=== PATIENT | male | born 1965 | race Two or more races ===

== ENCOUNTER → 2024-10-30 | Outpatient (CLI) | payer OTHER, MEDICAID, SELFPAY ==
--- NOTE | 2024-10-30 | XR_ITS ---
Examination: AP knees single view TECHNIQUE: AP standing knee single view Exam date and time: October 30, 2024 1513 hours INDICATIONS: Knee pain diagnosis osteoarthritis months FINDINGS: Severe narrowing medial joint space left knee Advanced osteoarthritis lateral joint space left knee No fracture or dislocation IMPRESSION: Severe narrowing medial joint space left knee with subarticular sclerosis Advanced osteoarthritis lateral joint space left knee
== END | disposition home or self-care (01) ==
LOC: SDIM 14:50
PROVIDERS: Referring Provider Orthopaedic Surgery; Visit Provider Orthopaedic Surgery
DX: M17.12 Unilateral primary osteoarthritis, left knee (principal); M25.862 Other specified joint disorders, left knee
CPT/HCPCS: 73560

== ENCOUNTER 2024-12-29 08:30 | Day surgery (SDC) | payer MEDICARE, MEDICAID, OTHER, SELFPAY ==
--- NOTE | 2024-12-28 11:37 | EKG_ITS ---
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
[2024-12-28 11:50] VITALS: BMI 33.0
[2024-12-28 12:27] LABS: Basophils # (Auto) 0.1 Thou/mm3 (0.0-0.2); Basophils % (Auto) 1 % (0-2.5); Eosinophils # (Auto) 0.2 Thou/mm3 (0.0-0.5); Eosinophils % (Auto) 3 % (0-10); Hematocrit 40.1 % (41.0-53.0); Hemoglobin 13.8 g/dL (13.5-16.0); Immature Granulocytes % (Auto) 1 % (0-0); Immature Granulocytes Auto 0.03 Thou/mm3 (0.00-0.00); Lymphocytes # (Auto) 2.5 Thou/mm3 (1.0-4.8); Lymphocytes % (Auto) 39 % (10-50); Mean Corpuscular HGB Conc 34.4 g/dl (31.0-37.0); Mean Corpuscular Hemoglobin 31.7 pg (25.0-35.0); Mean Corpuscular Volume 92 fL (80-100); Monocytes # (Auto) 0.5 Thou/mm3 (0.0-0.8); Monocytes % (Auto) 8 % (0-12); Neutrophils # (Auto) 3.1 Thou/mm3 (1.8-7.7); Neutrophils % (Auto) 49 % (37-80); Nucleated Red Blood Cell % 0 /100 WBC (0); Platelet Count 303 Thou/mm3 (140-440); RDW Standard Deviation 42.7 fL (35.1-43.9); Red Blood Count 4.36 Miln/mm3 (4.50-5.90); White Blood Count 6.4 Thou/mm3 (3.8-10.6)
[2024-12-28 12:56] LABS: Alanine Aminotransferase 15 U/L (10-49); Albumin, Serum 4.5 gm/dL (3.5-5.0); Albumin/Globulin Ratio 1.5 (1.2-2.2); Alkaline Phosphatase 92 U/L (46-116); Anion Gap 7 (7-16); Aspartate Amino Transferase 19 U/L (0-34); BUN/Creatinine Ratio 11 Ratio (12-20); Bilirubin,Total 0.4 mg/dL (0.3-1.2); Blood Urea Nitrogen 11 mg/dL (9-23); Calcium 9.6 mg/dL (8.3-10.6); Calcium (Corrected) 9.6 mg/dL (8.5-10.1); Carbon Dioxide 23.2 mMol/L (20.0-31.0); Chloride 106 mMol/L (98-107); Estimated Creatinine Clearance 86.9 mL/min (>60); Glucose 126 mg/dL (74-106); Osmolality,Calculated 273 (275-295); Potassium 4.2 mMol/L (3.4-5.1); Sodium 136 mMol/L (136-145); Total Protein 7.5 gm/dL (5.7-8.2); eGFR > 60 See Note
[2024-12-28 13:16] LABS: Partial Thromboplastin Time 31.9 Seconds (22.0-36.0); Prothrombin Time 10.8 Seconds (9.0-12.2)
--- NOTE | 2024-12-28 13:17 | ESHP_ITS ---
RE: NAKUL NANCE : 1965 DATE OF ADMISSION: 12/29/2024 HISTORY OF PRESENT ILLNESS: The patient has got pain in the left knee joint. Pain is quite bad. Range of motion is restricted. The patient graded intensity of pain to be 8/10. Activity of daily living and quality of life is affected. The patient is unable to sleep. The patient has to stop walking after one or two blocks due to pain. PAST MEDICAL HISTORY: The patient has a history of high cholesterol. No history of diabetes mellitus or high blood pressure, asthma, seizure, chest pain, myocardial infarction, or bleeding disorder. PAST SURGICAL HISTORY: Include cholecystectomy in 2007. DRUG HISTORY: The patient is on, 1. Loratadine. 2. Atorvastatin. 3. Gabapentin. 4. Amitriptyline. 5. The patient is also on hydroxyzine. ALLERGIES: NIL KNOWN. FAMILY HISTORY AND SOCIAL HISTORY: The patient denies smoking, drinking and is not working. PHYSICAL EXAMINATION: GENERAL: Normal built person. VITAL SIGNS: Pulse 82 per minute. Blood pressure 138/82. NECK: Soft, supple. No masses felt. Trachea is centrally placed. CARDIOVASCULAR: First and second hearts sounds normal. No murmur heard. LUNGS: Bilateral vesicular breath sounds. CHEST: Clear. ABDOMEN: Soft. No masses felt. Bowel sounds present. EXTREMITIES: Left knee examination revealed 1+ swelling and 2+ tenderness. 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 The patient walks with a limp. Range of motion 0 to 110 degrees of flexion. Crepitus is present. DIAGNOSTIC DATA: X-ray reveals severe osteoarthritic changes with significantly reduced medial joint space. ASSESSMENT AND PLAN: Since the patient is asymptomatic and affecting quality of life, therefore, left total knee replacement was discussed and advised. Risks with anesthesia was explained and that includes, but not limited to reaction to anesthetic agents, cardiac arrest or rarely it might be fatal. Risk with operation includes infection and if that happens, the patient may need further surgical procedure. Other risks include delayed healing, wound dehiscence, etc. No guarantee is given regarding outcome of the procedure and/or relief of symptoms. Sometimes rare complication happens and if that happens that has to be taken care of. The patient was sent to Dr. Briceno, the account leader, and has been cleared for surgical procedure. Appropriate lab work is done. Surgery is booked for 12/29/2024. DT: 12:20:07 TT: 13:15:00 Ref: [id number] - TID: [id number]
--- NOTE | 2024-12-28 14:20 | SUR.PREOP ---
Pt's notified to bring pt at 0830 tomorrow for surgery.
--- NOTE | 2024-12-28 14:36 | SUR.PREOP ---
Cardiac records reviewed with Dr Cunningham. 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 Requested records and waiting but have a cardiac clearance.
[2024-12-29] VITALS (16 sets, daily range): BP systolic 136–179; BP diastolic 73–96; PULSE 68–93; RESP 13–23; TEMP 36.2–36.8; O2SAT 95–100; BMI 32.9
[2024-12-29] MEDS: RINGERS LACTATED 1000 ML 1,000 ML 20 ML IV (09:13)
--- NOTE | 2024-12-29 09:41 | SUR.PREOP ---
Patient expressed gratitude for prayer before their procedure.
--- NOTE | 2024-12-29 12:24 | XR_ITS ---
Examination: Right knee 2 views Technique one AP lateral right knee 2 views Exam date and time: December 29, 2024 1527 hours INDICATIONS: Postop knee replacement today. FINDINGS: Moderate osteopenia. Total right hip arthroplasty. Satisfactory alignment No fracture IMPRESSION: Total right hip arthroplasty with satisfactory alignment
--- NOTE | 2024-12-29 12:24 | ESOP_ITS ---
Date of Procedure 12/29/24 Pre Op Diagnosis Severe DJD left knee joint Post Op Diagnosis Same Procedure Left total knee replacement [place] persona implant. Femur size 9 standard Tibial baseplate size G Polyethylene size 12 mm Patella size 29 mm Findings There is severe osteoarthritic changes with significant loss of the medial tibial plateau articular cartilage. There is significant genu varum deformity. Osteophytes are present all along. Procedure Description The patient was given a [spinal] anesthesia. Once satisfactory anesthesia was achieved a tourniquet was placed on left upper thigh. Intravenous antibiotics was given at the time of anesthesia. The patient was thoroughly prepped and draped. After using Esmarch the to urniquet pressure was raised to 350 mmHg. A skin incision was made 2 inches proximal to the upper pole of patella going as far down as up to the medial aspect of the tibial tuberosity. The skin was raised as a flap on the site. The bleeding vessels were electrocoagulated as and when encountered. The quadriceps tendon, medial border of the patella and the patellar tendon along the medial aspect of the tibial tuberosity was incised and reflected. The patellar tendon was reflected as much as needed to avtar the patella. The soft tissue from the upper medial border of the tibia was reflected to correct her genu varum deformity. The knee joint was flexed. The anterior cruciate ligament, medial and lateral meniscus were excised. Next para drill hole was made to the inferior surface of the femur. Following that a swab was placed. A 4?? of abduction was already put into it. Following that a cutting block for the inferior cut of the femur was placed and nicely secured with the pins. The swat was removed. The inferior cut of the femur was made and after that the cutting block was removed. Following that a sizer was placed. A decision was made to use size [9] femur implant. 2 drill holes each in 3?? of external rotation were made. The sizer was removed. Size [9] cutting block was placed. Following that anterior, posterior, anterior chamfer and posterior chamfer cuts were made. The cutting block was removed. The knee joint was extended and a 10 mm trial plastic was removed and the intended level of the tibial cut was marked. The knee joint was flexed. With the help of double-pronged the tibia was displaced anteriorly. An extramedullary jig for the cutting block placement of the tibia was placed. The mechanical axis of the zig was parallel to the mechanical axis of the tibia. Following that the tibial cutting block was placed at the desired level and was secured nicely with the help of pins. Following that the tibial cut was made. In this case was posterior cruciate ligament was saved. The cutting block was removed. The spacer was placed and a decision was made to use size [12] polyethylene. The sizing of the tibial baseplate was done and the decision was made to use size{ G] tibial baseplate. Following that size [9] trial femur implant was placed in lateralized position and size [G] tibial tibial baseplate along with size [12] plastic was placed in knee joint was flexed and extended quite a few times and tibial baseplate was allowed to sit wherever it wanted to. The markings were made for the tibial baseplate. 2 drill holes were made for the inferior surface of the femur trial implant. The trial implant was removed and tibial baseplate was placed again with the help of pins. The collar was placed and superior hole was drilled. Following that a fin cut was made. The patella was reamed with [29] mm diameter reamer. [14] mm thickness was left. A collar was placed and 3 drill holes were made. All the trial implant was placed and patellar tracking was checked and found to be good. Lateral release was done at this point. The wound was irrigated with antibiotic solution every 4-5 minutes. Now the power lavage antibiotic solution was used. The knee joint was flexed. The bone were made dry. The cement was mixed. With the help of cement the tibial baseplate was mounted. The excess cement was removed. The femur implant was placed and trial plastic was placed and knee joint was extended. Patella was also mounted with the help of cementing. Excess cement was removed. Osteophytes from the patella was removed at this time. Once the cement was set the tourniquet pressure was released. The bleeding vessels were electrocoagulated. The trial plastic was removed and 12 mm ultra high molecular weight polyethylene was placed. Closure . The quadriceps tendon, medial border of the patella and patellar tendon was closed with the help of 1-0 Vicryl in an interrupted fashion. The subcutaneous tissue was closed with 2-0 Vicryl in an interrupted fashion. The skin was closed with jennifer. The wound was cleaned with hydrogen proximal solution and a sterile dressing was applied. Patient tolerated procedure very well. Estimated blood loss [50] mL. Prognosis in this case is good. This was taken to the recovery room in good condition. Anesthesia GETA and other Pathology / specimen None Estimated Blood Loss 50 Surgeon John Haywood MD Surgical Staff Operation Date: 12/29/24 10:30 Case Staff Anesthesiologist: Lyle Marquez RN First Assistant: Luisito Francisco
--- NOTE | 2024-12-29 12:54 | SUR.PHASEI ---
1253: received from OR via bed. received report from OTTO Mallory and Jimmy Johnson. pt alert and oriented. no s/s of resp. distress or discomfort. oral airway in place. dressing to left knee clean, dry and intact. no bleeding or discharge noted from dressing. positive CMS: positive pulse, cap refill less than 2 seconds.
--- NOTE | 2024-12-29 12:54 | SUR.PHASEI ---
1254: pt able to open mouth when ask, removed opral airway at this time.
[2024-12-29] MEDS: fentaNYL CIT INJ 50 mCg/ML AMP 2ML 25 MCG IV ×2 (13:07→14:02)
[2024-12-29] MEDS: ACETAMINOPHEN IVPB 1,000 MG/100 ML VIAL 250 MG IV ×2 (13:10→19:55)
[2024-12-29] MEDS: ONDANSETRON INJ 2 MG/ML INJ 2 ML 4 MG IV ×2 (13:22→17:59)
--- NOTE | 2024-12-29 13:30 | SUR.PHASEI ---
1330: pt able use urinal, urine output 100 ml with color yellow, no odor noted.
[2024-12-29] MEDS: MORPHINE SULF INJ 10 MG/ML VIAL 3 MG IV (13:33)
--- NOTE | 2024-12-29 14:12 | SUR.PHASEII ---
1412 Report received from Marisol Pardo pt resting quietly, no complaints at this time, dressing to Left Knee CDI and Left Dorsal pedal pulse strong. VSS. Continue to Monitor.
--- NOTE | 2024-12-29 14:12 | SUR.PHASEI ---
1412: report given at this time with OTTO Caputo. pt sleeping at this time. no s/s of resp. distress or discomfort. dressing to left knee clean, dry and intact. no bleeding or discharge noted from dressing. positive CMS: able to wiggle left toes when ask, positive pulse, cap refill less than 2 seconds.
--- NOTE | 2024-12-29 14:27 | SUR.PHASEII ---
[address] Marquez regarding pt's pain and medication that has already been given being ineffective. Telephone order read/back received for Flexeril 10 mg PO x1 and Oxycodone IR 10 mg PO x1. Will place order in EMR and administer medication per MD order.
[2024-12-29] MEDS: CYCLObenzaPRINE 5 MG TABLET 10 MG PO (14:48)
--- NOTE | 2024-12-29 15:11 | SUR.PHASEII ---
1511 Pt had episode of 100 ml clear yellow emesis, pt reports feeling better after. Will continue to monitor.
--- NOTE | 2024-12-29 16:03 | SUR.PHASEII ---
1545 Report given to Chiquita MENJIVAR, patient meets discharge criteria from recovery, resting comfortably in bed, with his at bedside, breathing unlabored, vital signs stable, dressing intact; no bleeding noted, eating ice chips; tolerating well, patient has good circulation to left lower extremity. 1603 Patient transported via bed to room 379 without incident.
[2024-12-29] MEDS: ceFAZolin/D5W 1 GM IVPB 1 GM/50 ML BAG IV (18:07)
[2024-12-29] MEDS: MIRTAZAPINE 15 MG TABLET PO (20:06)
[2024-12-29] MEDS: hydrOXYzine HCL 25 MG TABLET 50 MG PO (20:06)
[2024-12-30] VITALS: BP 168/78; PULSE 72; RESP 19; TEMP 36.4; O2SAT 95
[2024-12-30] MEDS: ACETAMINOPHEN IVPB 1,000 MG/100 ML VIAL 250 MG IV ×2 (02:05→08:45)
[2024-12-30 02:06] VITALS: BP 168/78; PULSE 72
[2024-12-30] MEDS: amLODIPine BESYLATE 5 MG TABLET PO (02:06)
[2024-12-30] MEDS: ceFAZolin/D5W 1 GM IVPB 1 GM/50 ML BAG IV (02:40)
[2024-12-30 04:00] VITALS: BP 151/72; PULSE 75; RESP 19; TEMP 37.4; O2SAT 95
[2024-12-30] MEDS: MORPHINE SULF INJ 10 MG/ML VIAL 4 MG IV ×2 (04:25→14:09)
[2024-12-30 05:46] LABS: Basophils % (Auto) 0 % (0-2.5); Eosinophils % (Auto) 0 % (0-10); Hematocrit 37.2 % (41.0-53.0); Hemoglobin 12.9 g/dL (13.5-16.0); Immature Granulocytes % (Auto) 0 % (0-0); Immature Granulocytes Auto 0.04 Thou/mm3 (0.00-0.00); Lymphocytes # (Auto) 1.1 Thou/mm3 (1.0-4.8); Lymphocytes % (Auto) 10 % (10-50); Mean Corpuscular HGB Conc 34.7 g/dl (31.0-37.0); Mean Corpuscular Hemoglobin 31.4 pg (25.0-35.0); Mean Corpuscular Volume 91 fL (80-100); Monocytes % (Auto) 9 % (0-12); Neutrophils % (Auto) 81 % (37-80); Nucleated Red Blood Cell % 0 /100 WBC (0); Platelet Count 303 Thou/mm3 (140-440); RDW Standard Deviation 41.1 fL (35.1-43.9); Red Blood Count 4.11 Miln/mm3 (4.50-5.90); White Blood Count 11.1 Thou/mm3 (3.8-10.6)
--- NOTE | 2024-12-30 07:38 | PC.NURSE ---
Spoke to Dr. Haley regarding patients medication. 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 Notified that the patient's family member gave patient a dose of methadone from his home medication. Per , he would not restart the methadone and if he would have known that the patient is taking methadone, he would not have done the surgery. Am shift nurse made aware.
[2024-12-30] MEDS: ONDANSETRON INJ 2 MG/ML INJ 2 ML 4 MG IV (07:58)
[2024-12-30 08:00] VITALS: BP 165/84; PULSE 78; RESP 17; TEMP 36.3; O2SAT 97
[2024-12-30 12:00] VITALS: BP 145/89; PULSE 76; RESP 16; TEMP 36.8; O2SAT 97
--- NOTE | 2024-12-30 14:57 | PC.NURSE ---
Telephone order from Dr. Quinonez, to discharge patient at home. Informed MD that per physical therapist, patient is for home health Physical therapy. MD stated will make arrangement once patient is discharge and follow-up in his office Wednesday.
== END 2024-12-30 15:00 | disposition home health service (06) ==
LOC: S2EX 09:02 → S3SX 12-30 14:21
PROVIDERS: Anesthesiology; Referring Provider Orthopaedic Surgery; Visit Provider Orthopaedic Surgery
PROC: (CPT 27447; principal; 2024-12-29 10:30)
DX: M17.12 Unilateral primary osteoarthritis, left knee (principal); M21.162 Varus deformity, not elsewhere classified, left knee; M25.762 Osteophyte, left knee; E78.00 Pure hypercholesterolemia, unspecified; Z01.810 Encounter for preprocedural cardiovascular examination
CPT/HCPCS: 27447; 36415; 73560; 80053; 85025; 85610; 85730; 86850; 86900; 86901; 86923; 87081; 93005; 97161; A4217; C1713; C1776; J0131; J0689; J0690; J1100; J1580; J1885; J2250; J2270; J2405; J2704; J2795; J3010; J3490; J7120; A9270

== ENCOUNTER → 2025-04-05 | Outpatient (CLI) | payer OTHER, MEDICAID, SELFPAY ==
--- NOTE | 2025-04-05 09:19 | XR_ITS ---
Examination: Knee, right , 3 views Technique: Knee AP, lateral, oblique 3 views Date and time of exam: April 05, 2025 0921 hours INDICATIONS: Right knee pain 3 years. FINDINGS: Advanced tricompartment osteoarthritis Severe narrowing medial joint space Moderate knee effusion No fracture IMPRESSION: Advanced tricompartment osteoarthritis
== END | disposition home or self-care (01) ==
PROVIDERS: Referring Provider Orthopaedic Surgery; Visit Provider Orthopaedic Surgery
DX: M17.11 Unilateral primary osteoarthritis, right knee (principal)
CPT/HCPCS: 73562

== ENCOUNTER 2025-04-27 14:05 | Observation (INO) | payer MEDICARE, MEDICAID, SELFPAY ==
[2025-04-26 10:56] VITALS: BMI 34.2
[2025-04-26 11:54] LABS: Basophils # (Auto) 0.1 Thou/mm3 (0.0-0.2); Basophils % (Auto) 1 % (0-2.5); Eosinophils # (Auto) 0.3 Thou/mm3 (0.0-0.5); Eosinophils % (Auto) 4 % (0-10); Hematocrit 40.0 % (41.0-53.0); Hemoglobin 13.8 g/dL (13.5-16.0); Immature Granulocytes Auto 0.02 Thou/mm3 (0.00-0.00); Lymphocytes # (Auto) 2.1 Thou/mm3 (1.0-4.8); Lymphocytes % (Auto) 33 % (10-50); Mean Corpuscular HGB Conc 34.5 g/dl (31.0-37.0); Mean Corpuscular Hemoglobin 31.2 pg (25.0-35.0); Mean Corpuscular Volume 90 fL (80-100); Monocytes # (Auto) 0.5 Thou/mm3 (0.0-0.8); Monocytes % (Auto) 8 % (0-12); Neutrophils # (Auto) 3.4 Thou/mm3 (1.8-7.7); Neutrophils % (Auto) 53 % (37-80); Nucleated Red Blood Cell # 0.00 Thou/mm3 (0.00-0.00); Nucleated Red Blood Cell % 0 /100 WBC (0); Platelet Count 269 Thou/mm3 (140-440); RDW Standard Deviation 42.9 fL (35.1-43.9); Red Blood Count 4.43 Miln/mm3 (4.50-5.90); White Blood Count 6.3 Thou/mm3 (3.8-10.6)
[2025-04-26 12:03] LABS: INR 1.0 (0.9-1.3); Partial Thromboplastin Time 32.5 Seconds (22.0-36.0); Prothrombin Time 11.1 Seconds (9.0-12.2)
[2025-04-26 12:07] LABS: Alanine Aminotransferase 17 U/L (10-49); Albumin, Serum 4.4 gm/dL (3.5-5.0); Albumin/Globulin Ratio 1.5 (1.2-2.2); Alkaline Phosphatase 111 U/L (46-116); Anion Gap 6 (7-16); Aspartate Amino Transferase 20 U/L (0-34); BUN/Creatinine Ratio 12 Ratio (12-20); Bilirubin,Total 0.4 mg/dL (0.3-1.2); Blood Urea Nitrogen 15 mg/dL (9-23); Calcium 9.3 mg/dL (8.3-10.6); Calcium (Corrected) 9.3 mg/dL (8.5-10.1); Carbon Dioxide 24.5 mMol/L (20.0-31.0); Chloride 107 mMol/L (98-107); Creatinine (Component) 1.3 mg/dL (0.6-1.3); Estimated Creatinine Clearance 65.9 mL/min (>60); Globulin 3.0 gm/dL (2.3-3.5); Glucose 135 mg/dL (74-106); Osmolality,Calculated 276 (275-295); Potassium 4.1 mMol/L (3.4-5.1); Sodium 137 mMol/L (136-145); Total Protein 7.4 gm/dL (5.7-8.2); eGFR > 60 See Note
--- NOTE | 2025-04-26 13:49 | ESHP_ITS ---
RE: NAKUL NANCE : 1965 DATE OF ADMISSION: 04/27/2025 The patient came to my office on 04/26/2025 for detailed preop history and physical examination. HISTORY OF PRESENT COMPLAINT: The patient presented to me with history of pain in the right knee joint. Pain is quite bad and intensity of pain is graded 8-9/10. Unable to sleep. Quality of life and activities of daily living is affected. The patient wants something to be done about it. Unable to walk more than 1 or 2 blocks. PAST MEDICAL HISTORY: The patient has high cholesterol and prediabetes. PAST SURGICAL HISTORY: Include cholecystectomy and left total knee replacement done on 12/29/2024. DRUG HISTORY: The patient takes pain medication on and off. ALLERGIES: NIL KNOWN. FAMILY HISTORY AND SOCIAL HISTORY: The patient admits to smoking, denies drinking and is not working. PHYSICAL EXAMINATION: GENERAL: Normal built person. VITAL SIGNS: Pulse 82 per minute. Blood pressure 140/76. NECK: Soft, supple, no masses felt. Trachea is centrally placed. CARDIOVASCULAR SYSTEM: First and second heart sounds normal. No murmur heard. RESPIRATORY SYSTEM: Bilateral vesicular breath sounds. CHEST: Clear. ABDOMEN: Soft. No masses felt. Bowel sounds present. MUSCULOSKELETAL: Right knee examination revealed 1+ swelling and 2+ tenderness. There is genu varum deformity. Active range of motion 0-110 degrees of flexion. Crepitus is present. The patient walks with a limp. Neurovascularly is intact. LABORATORY DATA: X-ray revealed severe osteoarthritic changes of the right knee joint with almost absent medial and patellofemoral compartment. ASSESSMENT AND PLAN: Since the patient is symptomatic, therefore, right total knee replacement was discussed and advised. Risks with anesthesia were explained and that includes, but not limited to reaction to anesthetic agents, cardiac arrest, or rarely it might be fatal. Risks with operation includes infection and if that happens, the patient may need further surgical procedure. Other risks include delayed healing, wound dehiscence, etc. Sometimes rare complication happens and if that happens that has to be taken care of. There is a risk of a stress fracture proximal and distal to the implant. No guarantee is given regarding functional outcome and/or pain relief and the patient is fully aware of that. Sometimes the patient may need blood transfusion and risk with that was also explained. The patient stated that he would take blood when it is absolutely necessary. Surgery is booked for 04/27/2025, appropriate laboratory work done. DT: 12:03:58 TT: 13:48:00 Ref: [id number] - TID: [id number]
[2025-04-27] VITALS (16 sets, daily range): BP systolic 111–155; BP diastolic 62–91; PULSE 67–85; RESP 12–20; TEMP 36.1–37; O2SAT 92–99; BMI 34.1; BMI 13.0
[2025-04-27] MEDS: RINGERS LACTATED 1000 ML 1,000 ML 20 ML IV (06:39)
--- NOTE | 2025-04-27 07:31 | SUR.PREOP ---
Patient expressed gratitude for prayer before their procedure.
--- NOTE | 2025-04-27 10:31 | XR_ITS ---
Examination: Knee, right , 3 views Technique: Knee AP, lateral, oblique 3 views Date and time of exam: April 27, 2025 1117 hours INDICATIONS: Postop knee replacement today. FINDINGS: Total right knee arthroplasty. Satisfactory alignment. Mild osteopenia. No fracture IMPRESSION: Total right knee arthroplasty with satisfactory alignment
--- NOTE | 2025-04-27 10:50 | SUR.PHASEI ---
1050: Pt. wakes to name then drifts back to sleep, vitals stable, breathing unlabored, no complaint of pain or nausea, dressing to right knee CDI, no active bleed noted, bilateral dorsalis pedis pulses strong and regular, cap refill to bilateral feet less than 3 seconds, report received from MD Cunningham and Christa MENJIVAR.
[2025-04-27] MEDS: HYDROmorphone INJ 2 MG/ML VIAL 0.5 MG IVP ×4 (11:12→12:14)
[2025-04-27] MEDS: fentaNYL CIT INJ 50 mCg/ML AMP 2ML IVP ×2 (11:48→13:04)
--- NOTE | 2025-04-27 12:15 | SUR.PHASEII ---
1215: received report from OTTO Jaeger. pt alert and oriented. no s/s of resp. distress or discomfort. dressing to right knee clean, dry and intact. positive CMS: wiggle right toes, positive pulse and cap refill less than 2 seconds. at the bedside. able to drink water without any difficulty.
--- NOTE | 2025-04-27 12:51 | SUR.PHASEII ---
1251: Report received from Marisol MENJIVAR. Pt. AAOx4, vitals stable, breathing unlabored, dressing to right knee CDI, no changes.
[2025-04-27] MEDS: SODIUM CHLORIDE 0.9% 1000 ML 1,000 ML 60 ML IV (13:17)
--- NOTE | 2025-04-27 13:30 | SUR.PHASEII ---
1330: Pt. AAOx4, vitals stable, breathing unlabored, complaint of pain 03/20, however pt. stated this is a tolerable pain level, no complaint of nausea, dressing to right knee CDI, no active bleed noted, pt. able to move bilateral legs, cap refill to bilateral feet less than 3 seconds, bilateral dorsalis pedis pulses strong and regular, pt. tolerated sips of soda well, gave report to Argelia prior to transfer to room 355. Family made aware of transfer and pt. transferred with all personal belongings.
[2025-04-27] MEDS: MORPHINE SULF INJ 10 MG/ML VIAL 4 MG IVP ×2 (14:44→20:13)
[2025-04-27] MEDS: ceFAZolin/D5W 1 GM IVPB 1 GM/50 ML BAG IV (17:03)
[2025-04-28] VITALS: BP 146/84; PULSE 67; RESP 19; TEMP 36.3; O2SAT 98
[2025-04-28] MEDS: ceFAZolin/D5W 1 GM IVPB 1 GM/50 ML BAG IV (00:30)
[2025-04-28 02:07] VITALS: PULSE 68; RESP 18; O2SAT 98
[2025-04-28] MEDS: MORPHINE SULF INJ 10 MG/ML VIAL 4 MG IVP ×3 (02:27→10:52)
[2025-04-28 04:00] VITALS: BP 136/77; PULSE 71; RESP 18; TEMP 36.4; O2SAT 99
--- NOTE | 2025-04-28 05:31 | PC.NURSE ---
Patient is complaining of pain to right knee, Morphine PRN not due until 626. Called Dr. Quinonez, no answer. Call not even going to voicemail. Will attempt to get a hold of MD again later.
--- NOTE | 2025-04-28 05:41 | PC.NURSE ---
Tried to get a hold of Dr. Quinonez for the second time, still no answer. Pt repositioned, pain has somehow subsided per Pt and verbalized can wait until the next dose of Morphine PRN.
[2025-04-28 05:58] LABS: Basophils # (Auto) 0.0 Thou/mm3 (0.0-0.2); Basophils % (Auto) 0 % (0-2.5); Eosinophils # (Auto) 0.0 Thou/mm3 (0.0-0.5); Eosinophils % (Auto) 0 % (0-10); Hematocrit 35.6 % (41.0-53.0); Hemoglobin 11.8 g/dL (13.5-16.0); Immature Granulocytes Auto 0.03 Thou/mm3 (0.00-0.00); Lymphocytes # (Auto) 1.5 Thou/mm3 (1.0-4.8); Lymphocytes % (Auto) 17 % (10-50); Mean Corpuscular HGB Conc 33.1 g/dl (31.0-37.0); Mean Corpuscular Hemoglobin 31.4 pg (25.0-35.0); Mean Corpuscular Volume 95 fL (80-100); Monocytes # (Auto) 1.0 Thou/mm3 (0.0-0.8); Monocytes % (Auto) 12 % (0-12); Neutrophils # (Auto) 6.2 Thou/mm3 (1.8-7.7); Neutrophils % (Auto) 71 % (37-80); Nucleated Red Blood Cell # 0.00 Thou/mm3 (0.00-0.00); Nucleated Red Blood Cell % 0 /100 WBC (0); Platelet Count 255 Thou/mm3 (140-440); RDW Standard Deviation 45.1 fL (35.1-43.9); Red Blood Count 3.76 Miln/mm3 (4.50-5.90); White Blood Count 8.8 Thou/mm3 (3.8-10.6)
[2025-04-28] MEDS: SODIUM CHLORIDE 0.9% 1000 ML 1,000 ML 60 ML IV (06:32)
[2025-04-28 07:37] VITALS: PULSE 73; RESP 18; O2SAT 94
[2025-04-28 08:00] VITALS: BP 112/70; PULSE 74; RESP 18; TEMP 36.5; O2SAT 95
[2025-04-28 10:27] VITALS: BMI 14.0
[2025-04-28 11:30] VITALS: BP 126/71; PULSE 73; RESP 18; TEMP 36.1; O2SAT 95
--- NOTE | 2025-04-28 15:37 | PC.SS ---
LATE ENTRY Anderson Luna is 59 year old male admitted to [facility] for RT Total Knee Replacement. SS conducted bedside contact with the patient to complete initial assessment and to discuss discharge planning.? SW used all precautionary measures to complete initial. Role and reason for the contact was explained to Anderson. Pt is alert and oriented times 4. Patient confirmed demographic information confirmed address on Facesheet. Pt lives with family. Patient identifies Katey Queen, spouse, as his surrogate decision maker. Pt states prior to hospitalization he is able to complete all ADL?s independently and does not require DME nor O2. Pt does have walker and wheelchair. Pt confirmed no history of mental health or substance abuse. Pt does not have Advance life directive on file and receptive to paper work which was provided at bedside. Pts PCP is Dr Westley Cabrera. Pharmacy of choice is [facility] in [place]. Discharge options discussed and the pt will ?return home. Pt family will provide transportation upon DC. No further intervention required at this time, psychosocial rehabilitation counselor would be available to address any further concerns. DC Plan: Home Contact: Katey Queen, spouse, Address: Confirmed on face sheet PCP: Dr Westley Cabrera
--- NOTE | 2025-05-01 13:48 | PD.ANESPROG ---
Documentation for date of: 05/01/25 POST ANESTHESIA NOTE: Patient had GETA and R femoral block for R TKA on 04/27/25. I just called and spoke with him on the phone and he denied any problems from anesthesia and said It was perfect, thank you. Zay Cunningham MD Anesthesia Progress Note Progress Note Most recent Vital Signs: Last Vital Signs Temp 97.0 F 04/28/25 11:30 Pulse 73 04/28/25 11:30 Resp 18 04/28/25 11:30 BP 126/71 04/28/25 11:30 Pulse Ox 95 04/28/25 11:30 O2 Del Method Room Air 04/28/25 11:30 O2 Flow Rate 2 04/28/25 04:00
--- NOTE | 2025-05-04 13:38 | ESOP_ITS ---
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 [place] persona implant. Femur size 9 standard Tibial baseplate size G Polyethylene size 11 mm CR Patella size 29 mm Findings Refer dictation Procedure Description The patient was given a [spinal] anesthesia. Once satisfactory anesthesia was achieved a tourniquet was placed on right upper thigh. Intravenous antibiotics was given at the time of anesthesia. The patient was thoroughly prepped and draped. After using Esmarch the tourniquet pressure was raised to 350 mmHg. A skin incision was made 2 inches proximal to the upper pole of patella going as far down as up to the medial aspect of the tibial tuberosity. The skin was raised as a flap on the site. The bleeding vessels were electrocoagulated as and when encountered. The quadriceps tendon, medial border of the patella and the patellar tendon along the medial aspect of the tibial tuberosity was incised and reflected. The patellar tendon was reflected as much as needed to avtar the patella. The soft tissue from the upper medial border of the tibia was reflected to correct her genu varum deformity. The knee joint was flexed. The anterior cruciate ligament, medial and lateral meniscus were excised. Next para drill hole was made to the inferior surface of the femur. Following that a swab was placed. A 4?? of abduction was already put into it. Following that a cutting block for the inferior cut of the femur was placed and nicely secured with the pins. The swat was removed. The inferior cut of the femur was made and after that the cutting block was removed. Following that a sizer was placed. A decision was made to use size [9] femur implant. 2 drill holes each in 3?? of external rotation were made. The sizer was removed. Size [9] cutting block was placed. Following that anterior, posterior, anterior chamfer and posterior chamfer cuts were made. The cutting block was removed. The knee joint was extended and a 10 mm trial plastic was removed and the intended level of the tibial cut was marked. The knee joint was flexed. With the help of double-pronged the tibia was displaced anteriorly. An extramedullary jig for the cutting block placement of the tibia was placed. The mechanical axis of the zig was parallel to the mechanical axis of the tibia. Following that the tibial cutting block was placed at the desired level and was secured nicely with the help of pins. Following that the tibial cut was made. In this case was posterior cruciate ligament was saved. The cutting block was removed. The spacer was placed and a decision was made to use size [12] polyethylene. The sizing of the tibial baseplate was done and the decision was made to use size [G] tibial baseplate. Following that size [9] trial femur implant was placed in lateralized position and size [G] tibial tibial baseplate along with size [11] plastic was placed in knee joint was flexed and extended quite a few times and tibial baseplate was allowed to sit wherever it wanted to. The markings were made for the tibial baseplate. 2 drill holes were made for the inferior surface of the femur trial implant. The trial implant was removed and tibial baseplate was placed again with the help of pins. The collar was placed and superior hole was drilled. Following that a fin cut was made. The patella was reamed with [29] mm diameter reamer. [12] mm thickness was left. A collar was placed and 3 drill holes were made. All the trial implant was placed and patellar tracking was checked and found to be good. Lateral release was done at this point. The wound was irrigated with antibiotic solution every 4-5 minutes. Now the power lavage antibiotic solution was used. The knee joint was flexed. The bone were made dry. The cement was mixed. With the help of cement the tibial baseplate was mounted. The excess cement was removed. The femur implant was placed and trial plastic was placed and knee joint was extended. Patella was also mounted with the help of cementing. Excess cement was removed. Osteophytes from the patella was removed at this time. Once the cement was set the tourniquet pressure was released. The bleeding vessels were electrocoagulated. The trial plastic was removed and 11 mm ultra high molecular weight polyethylene was placed. Closure The quadriceps was closed with the help of 1 strata fix in continuous fashion. The fat layer was closed with the help of 2 oh STRATAFIX Vicryl. The skin was approximated with number of chrome subcu continuous suture. The wound was cleaned with hydrogen proximal solution and a sterile dressing was applied. Patient tolerated procedure very well. Estimated blood loss [25] mL. Prognosis in this case is good. This was taken to the recovery room in good condition. Anesthesia GETA and other Pathology / specimen None Estimated Blood Loss 25 Surgeon John Haywood MD Surgical Staff Operation Date: 04/27/25 07:30 Case Staff Anesthesiologist: Zay Cunningham RNchannel executive: Maia Whaley
== END 2025-04-28 11:43 | disposition home or self-care (01) ==
LOC: S3NX 14:07
PROVIDERS: Anesthesiology; Admitting Provider Orthopaedic Surgery; PCP Family Medicine; Referring Provider Orthopaedic Surgery; Visit Provider Orthopaedic Surgery
PROC: (CPT 27447; principal; 2025-04-27 07:30)
DX: M17.11 Unilateral primary osteoarthritis, right knee (principal); Z90.49 Acquired absence of other specified parts of digestive tract
CPT/HCPCS: 27447; 36415; 73562; 80053; 85025; 85610; 85730; 86850; 86900; 86901; 86923; 87081; 96361; 96365; 96375; 96376; 97162; A4217; C1713; C1776; G0378; J0131; J0689; J0690; J1100; J1171; J2250; J2270; J2371; J2405; J2704; J2795; J3010; J3490; J7030; J7120; A9270; J1805